=== PATIENT | male | born 1940 | race Caucasian/White ===

== ENCOUNTER → 2018-01-15 | Outpatient (CLI) | payer OTHER ==
[~2018-01-15] MED LIST: ASPI81CH PO; ATOR80 PO; Ambien5 MG PO; Amiodarone HCl200 MG PO; CARV6.25 PO; HYDR10 PO; ISODIN10 PO; LOSARTAN POTASS25 MG PO; METF500 PO; NAPR500 PO; TICA90TA PO; Zofran Odt4 MG SL
== END ==
LOC: PLD 10:21 → LAB SHORT 10:21
DX: L98.9 Disorder of the skin and subcutaneous tissue, unspecified (principal)
CPT/HCPCS: 88305; 88312

== ENCOUNTER → 2019-02-03 | Outpatient (CLI) | payer OTHER | END | disposition home or self-care (01) | LOC: PLD 08:18 → LAB SHORT 08:18 | DX: D48.5 Neoplasm of uncertain behavior of skin (principal) | CPT/HCPCS: 88305 ==

== ENCOUNTER → 2019-02-18 | Outpatient (CLI) | payer OTHER | END | disposition home or self-care (01) | LOC: PLD 08:03 → LAB SHORT 08:03 | DX: C44.310 Basal cell carcinoma of skin of unspecified parts of face (principal) | CPT/HCPCS: 88305 ==

== ENCOUNTER 2019-04-30 09:03 | Day surgery (SDC) | payer OTHER ==
[~2019-04-30] VITALS: Ht 175.3 cm; Wt 95.3 kg
[~2019-04-30 09:03] MED LIST changes: +Alavert D-12 A1 EACH PO; +CLOB.05TO TOP; +CLOP75 PO; +DOXY100 PO; +LORA.5 PO; +LOSA25 PO
--- NOTE | 2019-04-30 09:39 | NUR ---
PT ADMITTED TO [facility]. AGREES WITH PLANNED SURGERY. LUNG SOUNDS CLEAR.
--- NOTE | 2019-04-30 12:21 | NUR ---
Patient up to Ambulate independently. Gait steady. Discharge instructions reviewed with patient. Patient verbalizes understanding. Copy given to patient to take home. Patient States Post-Procedure ride home has been arranged. Discharged via wheelchair to private car for ride home.
== END 2019-04-30 22:47 | disposition home or self-care (01) ==
LOC: ORSCMMR 09:03 → ORD 10:30 → ORSCMMR 22:47
PROVIDERS: Surgery
PROC: 0D9P3ZX Drainage of Rectum, Percutaneous Approach, Diagnostic (ICD-10-PCS; principal; 2019-04-30 10:30)
DX: K61.1 Rectal abscess (principal); E11.22 Type 2 diabetes mellitus with diabetic chronic kidney disease; I12.9 Hypertensive chronic kidney disease with stage 1 through stage 4 chronic kidney disease, or unspecified chronic kidney disease; N18.9 Chronic kidney disease, unspecified; I48.91 Unspecified atrial fibrillation; Z79.01 Long term (current) use of anticoagulants; I25.10 Atherosclerotic heart disease of native coronary artery without angina pectoris; I25.2 Old myocardial infarction; Z79.899 Other long term (current) drug therapy; Z79.82 Long term (current) use of aspirin; F17.210 Nicotine dependence, cigarettes, uncomplicated
CPT/HCPCS: 82947; 93005; 93010; J1100; J2250; J2405; J2704; J3010; J7120

== ENCOUNTER → 2019-05-13 | Outpatient (CLI) | payer OTHER | END | disposition home or self-care (01) | LOC: LAB SHORT 16:29 → PLD 16:29 | DX: D48.5 Neoplasm of uncertain behavior of skin (principal) | CPT/HCPCS: 88305 ==

== ENCOUNTER → 2020-09-01 | Outpatient (CLI) | payer OTHER | END | disposition home or self-care (01) | LOC: PLD 08:00 → LAB SHORT 08:00 | DX: L73.8 Other specified follicular disorders (principal) | CPT/HCPCS: 88305 ==

== ENCOUNTER → 2024-02-17 | Outpatient (CLI) | payer OTHER ==
[~2024-02-17] MED LIST changes: +ALDACTONE25 MG PO; +ATORVASTATIN CA20 MG PO; +CARVEDILOL25 M9 PO; +LANSOPRAZOLE15 MG PO; +LEVOCETIRIZINE D5 MG PO; +METFORMIN HCL500 M2 PO; +OMEP20ER PO; +PANT40 PO
[2024-02-17 08:15] LABS: BASOPHILS ABSOLUTE AUTO 0.02 K/mm3 (0.00-0.23); BASOPHILS PERCENT AUTO 0 % (0-2); EOSINOPHILS ABSOLUTE AUTO 0.06 K/mm3 (0.00-0.68); EOSINOPHILS PERCENT AUTO 1 % (0-6); Hematocrit 36.2 % (37.0-53.0); Hemoglobin 12.3 g/dL (13.5-17.5); IMMATURE GRAN ABSOLUTE AUTO 0.02 K/mm3 (0.00-0.10); IMMATURE GRAN PERCENT AUTO 0 % (0-1); LYMPHOCYTES ABSOLUTE AUTO 1.03 K/mm3 (0.84-5.20); LYMPHOCYTES PERCENT AUTO 22 % (21-46); MONOCYTES ABSOLUTE AUTO 0.41 K/mm3 (0.16-1.47); MONOCYTES PERCENT AUTO 9 % (4-13); Mean Corpuscular HGB 31.4 pg (26.0-34.0); Mean Corpuscular Volume 92 fL (80-100); Mean Platelet Volume 10.5 fL (9.1-12.4); NEUTROPHILS ABSOLUTE AUTO 3.13 K/mm3 (1.96-9.15); NEUTROPHILS PERCENT AUTO 67 % (41-73); Platelet Count 145 K/mm3 (150-400); RDW Coefficient Variation 12.6 % (11.7-14.2); RDW Standard Deviation 41.8 fL (35.1-46.3); Red Blood Cell Count 3.92 M/mm3 (4.30-5.90); White Blood Cell Count 4.67 K/mm3 (4.00-11.30)
[2024-02-17 08:27] LABS: Albumin, Blood 3.3 g/dL (3.4-5.0); Albumin/Globulin Ratio 0.9 (0.8-1.8); Bilirubin, Total 1.4 mg/dL (0.1-1.0); Bun/Creatinine Ratio 10.4 (12.0-20.0); Calcium, Blood 8.7 mg/dL (8.5-10.1); Creatinine, Blood 1.35 mg/dL (0.60-1.20); Globulin, Blood 3.6 g/dL (2.2-4.0); Potassium, Blood 4.1 mmol/L (3.5-5.5); Total Protein, Blood 6.9 g/dL (6.4-8.2)
== END | disposition home or self-care (01) ==
LOC: LAB 08:10 → LAB SHORT 08:10
PROVIDERS: Physician Assistant
DX: R06.00 Dyspnea, unspecified (principal)
CPT/HCPCS: 80053; 83880; 84484; 85025

== ENCOUNTER 2024-04-03 16:26 | Observation (INO) | payer OTHER ==
[~2024-04-03 16:26] MED LIST changes: -ATIVAN0.5 MG PO; -ATORVASTATIN CA80 M1 PO; -FLOMAX0.4 MG PO; -FURO20 PO
[2024-04-03 16:51] VITALS: BP 120/79
[2024-04-03] MEDS ORDERED: Magnesium Hydroxide Conc 10 ML UDC PO PRN (16:55)
[2024-04-03] MEDS ORDERED: Acetaminophen 325 MG TABLET PO PRN (17:00)
[2024-04-03] MEDS ORDERED: ASPI81CH PO (17:01)
[2024-04-03] MEDS ORDERED: ATORVASTATIN CA80 M1 PO (17:02)
[2024-04-03] MEDS ORDERED: FURO20 PO (17:04)
[2024-04-03] MEDS ORDERED: ATIVAN0.5 MG PO (17:05)
[2024-04-03] MEDS ORDERED: LORazepam 1 MG Tab PO PRN (17:05)
[2024-04-03] MEDS ORDERED: OMEP20ER PO (17:06)
[2024-04-03] MEDS ORDERED: ALDACTONE25 MG PO (17:07)
[2024-04-03] MEDS ORDERED: FLOMAX0.4 MG PO (17:08)
--- NOTE | 2024-04-03 19:50 | NUR ---
SHIFT SUMMARY- PT ALERT, ORIENTED AND INDEPENDENT IN THE ROOM. HE WAS DIRECT ADMITTED THROUGH [facility]. PT IN [place] FOR COVID. CALLED DR ANDRADE AND SPOKE ABOUT LABS NEEDED FOR PRE THORACENTESIS. PT SATES HIS LAST DOSE OF PLAVIX WAS TAKEN THIS MORNING. SPOKE TO GUEST ATTENDANT URIEL, SHE WILL BE SURE THE RADIOLOGIST IS AWARE, THE PLAVIX MAY DELAY THE PROCEDURE. DR ROSADO IS AWARE. PT CURRENTLY ON ROOM AIR. ADMISSION ASSESSMENT WAS COMPLETED, UNABLE TO COMPLETE Hx AT THIS TIME PASSED ON TO VENDER. PT IN BED SLEEPING AT THE TIME OF REPORT. PT STATES HE AND HIS JUST FINISHED A SHORT [place] HE STATES THATS WHERE HE CAUGHT COVID. PT IN BED, CALL LIGHT IN REACH NO S&S OF DISTRESS NOTED AT THIS TIME.
[2024-04-03 20:00] VITALS: BP 102/72
[2024-04-03] MEDS ORDERED: Tamsulosin HCl 0.4 MG Cap PO SCH (21:00)
[2024-04-03] MEDS ORDERED: Sennosides 8.6 MG Tab PO SCH (21:00)
[2024-04-03] MEDS ORDERED: Atorvastatin 40 MG Tab PO SCH (21:00)
[2024-04-04 03:44] VITALS: BP 101/69
[2024-04-04 05:31] LABS: BASOPHILS PERCENT AUTO 0 % (0-2); EOSINOPHILS ABSOLUTE AUTO 0.02 K/mm3 (0.00-0.68); EOSINOPHILS PERCENT AUTO 1 % (0-6); Hematocrit 32.1 % (37.0-53.0); IMMATURE GRAN PERCENT AUTO 0 % (0-1); LYMPHOCYTES ABSOLUTE AUTO 1.11 K/mm3 (0.84-5.20); LYMPHOCYTES PERCENT AUTO 29 % (21-46); MONOCYTES ABSOLUTE AUTO 0.46 K/mm3 (0.16-1.47); MONOCYTES PERCENT AUTO 12 % (4-13); Mean Corpuscular HGB 31.2 pg (26.0-34.0); Mean Corpuscular HGB Conc 34.3 g/dL (31.5-36.5); Mean Corpuscular Volume 91 fL (80-100); Mean Platelet Volume 10.2 fL (9.1-12.4); NEUTROPHILS ABSOLUTE AUTO 2.24 K/mm3 (1.96-9.15); NEUTROPHILS PERCENT AUTO 59 % (41-73); Platelet Count 115 K/mm3 (150-400); RDW Coefficient Variation 13.3 % (11.7-14.2); RDW Standard Deviation 43.7 fL (35.1-46.3); Red Blood Cell Count 3.53 M/mm3 (4.30-5.90); White Blood Cell Count 3.83 K/mm3 (4.00-11.30)
[2024-04-04 05:46] LABS: International Normalized Ratio 1.04; Prothrombin Time Results 11.1 Sec (9.7-11.5)
--- NOTE | 2024-04-04 05:50 | NUR ---
SHIFT SUMMARY: NO ACUTE EVENTS. DENIED PAIN. NO EVENTS ON TELEMETRY, SR 70-90'S WITH OCC PVC'S. SCD'S PLACED, BUT AFTER ~ 30 MINUTES PT DEVELOPED LEG CRAMPS IN BILATERAL THIGHS AND ASKED TO HAVE THEM REMOVED. INDEPENDENT IN ROOM. IS NPO FOR THORACENTESIS TODAY.
[2024-04-04] MEDS ORDERED: Omeprazole 20 MG CapCR PO SCH (06:00)
[2024-04-04 06:02] LABS: Albumin, Blood 3.2 g/dL (3.4-5.0); Bilirubin, Total 1.1 mg/dL (0.1-1.0); Bun/Creatinine Ratio 16.9 (12.0-20.0); Calcium, Blood 8.7 mg/dL (8.5-10.1); Creatinine, Blood 1.42 mg/dL (0.60-1.20); Globulin, Blood 3.3 g/dL (2.2-4.0); Potassium, Blood 3.9 mmol/L (3.5-5.5); Total Protein, Blood 6.5 g/dL (6.4-8.2)
[2024-04-04 07:59] VITALS: BP 104/63
[2024-04-04] MEDS ORDERED: Lactated Ringer's 500 ML IV SCH (08:00)
[2024-04-04] MEDS ORDERED: Spironolactone 25 MG Tab PO SCH (09:00)
[2024-04-04 11:37] VITALS: BP 107/66
--- NOTE | 2024-04-04 15:46 | NUR ---
DISCHARGE NOTE- PT AND HIS SPOUSE WERE PRESENT FOR DISCHARGE TEACHING. PT HAD NO FURTHER QUESTIONS AT THE TIME OF DISCHARGE. IV AND TELE DC'D AT THE TIME OF DISCHARGE, PT ESCORTED OUT VIA WC BY THE SOFTWARE QUALITY TESTER. NO S&S OF DISTRESS AT THE TIME OF DISCHARGE.
== END 2024-04-04 15:02 | disposition home or self-care (01) ==
LOC: MEDS 16:26
PROVIDERS: ADMIT Family Medicine
DX: J90 Pleural effusion, not elsewhere classified (principal); I25.118 Atherosclerotic heart disease of native coronary artery with other forms of angina pectoris; J44.9 Chronic obstructive pulmonary disease, unspecified; I13.0 Hypertensive heart and chronic kidney disease with heart failure and stage 1 through stage 4 chronic kidney disease, or unspecified chronic kidney disease; E11.22 Type 2 diabetes mellitus with diabetic chronic kidney disease; I50.22 Chronic systolic (congestive) heart failure; N18.30 Chronic kidney disease, stage 3 unspecified; U07.1 COVID-19; N40.1 Benign prostatic hyperplasia with lower urinary tract symptoms; K76.0 Fatty (change of) liver, not elsewhere classified; K80.20 Calculus of gallbladder without cholecystitis without obstruction; Z88.8 Allergy status to other drugs, medicaments and biological substances; Z79.899 Other long term (current) drug therapy; Z87.891 Personal history of nicotine dependence; R06.02 Shortness of breath; I25.10 Atherosclerotic heart disease of native coronary artery without angina pectoris; E27.9 Disorder of adrenal gland, unspecified; K76.89 Other specified diseases of liver
CPT/HCPCS: 36415; 71046; 71260; 76705; 80053; 83880; 84484; 85025; 85379; 85610; 85730; A9270; G0378; Q9967

== ENCOUNTER → 2024-04-03 | Outpatient (CLI) | payer OTHER ==
[~2024-04-03] MED LIST changes: +ATIVAN0.5 MG PO; +ATORVASTATIN CA80 M1 PO; +FLOMAX0.4 MG PO; +FURO20 PO
[2024-04-03 08:22] LABS: BASOPHILS ABSOLUTE AUTO 0.02 K/mm3 (0.00-0.23); BASOPHILS PERCENT AUTO 0 % (0-2); EOSINOPHILS ABSOLUTE AUTO 0.01 K/mm3 (0.00-0.68); EOSINOPHILS PERCENT AUTO 0 % (0-6); Hematocrit 35.2 % (37.0-53.0); Hemoglobin 11.9 g/dL (13.5-17.5); IMMATURE GRAN ABSOLUTE AUTO 0.03 K/mm3 (0.00-0.10); IMMATURE GRAN PERCENT AUTO 1 % (0-1); LYMPHOCYTES PERCENT AUTO 18 % (21-46); MONOCYTES ABSOLUTE AUTO 0.61 K/mm3 (0.16-1.47); MONOCYTES PERCENT AUTO 14 % (4-13); Mean Corpuscular HGB 30.8 pg (26.0-34.0); Mean Corpuscular HGB Conc 33.8 g/dL (31.5-36.5); Mean Corpuscular Volume 91 fL (80-100); NEUTROPHILS ABSOLUTE AUTO 3.01 K/mm3 (1.96-9.15); NEUTROPHILS PERCENT AUTO 67 % (41-73); RDW Coefficient Variation 13.4 % (11.7-14.2); RDW Standard Deviation 44.3 fL (35.1-46.3); Red Blood Cell Count 3.86 M/mm3 (4.30-5.90); White Blood Cell Count 4.48 K/mm3 (4.00-11.30)
[2024-04-03 08:52] LABS: Mean Platelet Volume 10.3 fL (9.1-12.4); Platelet Count 138 K/mm3 (150-400)
[2024-04-03 09:04] LABS: Albumin, Blood 3.8 g/dL (3.4-5.0); Bilirubin, Total 1.2 mg/dL (0.1-1.0); Bun/Creatinine Ratio 16.2 (12.0-20.0); Creatinine, Blood 1.54 mg/dL (0.60-1.20); Globulin, Blood 3.8 g/dL (2.2-4.0); Potassium, Blood 4.1 mmol/L (3.5-5.5); Total Protein, Blood 7.6 g/dL (6.4-8.2)
== END | disposition home or self-care (01) ==
LOC: LAB 08:05 → LAB SHORT 08:05
PROVIDERS: Emergency Medicine
DX: I50.22 Chronic systolic (congestive) heart failure (principal); R06.02 Shortness of breath
CPT/HCPCS: 80053; 83880; 84484; 85025; 85379

== ENCOUNTER 2024-04-07 13:51 | Emergency (ER) | payer OTHER ==
[~2024-04-07] VITALS: Ht 175.3 cm; Wt 83.9 kg
[~2024-04-07 13:51] MED LIST changes: +ATIVAN0.5 MG PO; +ATORVASTATIN CA80 M1 PO; +FLOMAX0.4 MG PO; +FURO20 PO
[2024-04-07 14:14] LABS: BASOPHILS ABSOLUTE AUTO 0.01 K/mm3 (0.00-0.23); BASOPHILS PERCENT AUTO 0 % (0-2); EOSINOPHILS ABSOLUTE AUTO 0.19 K/mm3 (0.00-0.68); EOSINOPHILS PERCENT AUTO 3 % (0-6); Hematocrit 36.8 % (37.0-53.0); Hemoglobin 12.6 g/dL (13.5-17.5); IMMATURE GRAN ABSOLUTE AUTO 0.02 K/mm3 (0.00-0.10); IMMATURE GRAN PERCENT AUTO 0 % (0-1); LYMPHOCYTES ABSOLUTE AUTO 0.77 K/mm3 (0.84-5.20); LYMPHOCYTES PERCENT AUTO 13 % (21-46); MONOCYTES ABSOLUTE AUTO 0.45 K/mm3 (0.16-1.47); MONOCYTES PERCENT AUTO 8 % (4-13); Mean Corpuscular HGB 30.9 pg (26.0-34.0); Mean Corpuscular HGB Conc 34.2 g/dL (31.5-36.5); Mean Corpuscular Volume 90 fL (80-100); Mean Platelet Volume 10.1 fL (9.1-12.4); NEUTROPHILS ABSOLUTE AUTO 4.39 K/mm3 (1.96-9.15); NEUTROPHILS PERCENT AUTO 75 % (41-73); Platelet Count 156 K/mm3 (150-400); RDW Coefficient Variation 13.1 % (11.7-14.2); RDW Standard Deviation 43.1 fL (35.1-46.3); Red Blood Cell Count 4.08 M/mm3 (4.30-5.90); White Blood Cell Count 5.83 K/mm3 (4.00-11.30)
[2024-04-07 17:15] VITALS: BP 102/70
== END 2024-04-07 17:23 | disposition home or self-care (01) ==
LOC: ER 13:51
PROVIDERS: Emergency Medicine
DX: J81.1 Chronic pulmonary edema (principal); J90 Pleural effusion, not elsewhere classified; I25.2 Old myocardial infarction; I10 Essential (primary) hypertension; E78.5 Hyperlipidemia, unspecified; Z95.5 Presence of coronary angioplasty implant and graft; Z95.0 Presence of cardiac pacemaker; Z79.899 Other long term (current) drug therapy; Z88.8 Allergy status to other drugs, medicaments and biological substances
CPT/HCPCS: 71046; 85025; 99285-25

== ENCOUNTER 2024-04-13 10:11 | Day surgery (SDC) | payer OTHER | END 2024-04-13 23:11 | disposition home or self-care (01) | LOC: US 10:11 | DX: J90 Pleural effusion, not elsewhere classified (principal) | CPT/HCPCS: 32555; 71045 ==

== ENCOUNTER 2024-05-10 09:56 | Inpatient (IN) | payer OTHER ==
[2024-05-10] VITALS (13 sets, daily range): BP systolic 66–92; BP diastolic 42–64
[~2024-05-10] VITALS: Ht 175.3 cm; Wt 81.5 kg
[2024-05-10 10:30] LABS: BASOPHILS ABSOLUTE AUTO 0.02 K/mm3 (0.00-0.23); BASOPHILS PERCENT AUTO 0 % (0-2); EOSINOPHILS ABSOLUTE AUTO 0.23 K/mm3 (0.00-0.68); EOSINOPHILS PERCENT AUTO 4 % (0-6); Hematocrit 31.6 % (37.0-53.0); Hemoglobin 10.6 g/dL (13.5-17.5); IMMATURE GRAN ABSOLUTE AUTO 0.01 K/mm3 (0.00-0.10); IMMATURE GRAN PERCENT AUTO 0 % (0-1); LYMPHOCYTES ABSOLUTE AUTO 0.67 K/mm3 (0.84-5.20); LYMPHOCYTES PERCENT AUTO 12 % (21-46); MONOCYTES ABSOLUTE AUTO 0.39 K/mm3 (0.16-1.47); MONOCYTES PERCENT AUTO 7 % (4-13); Mean Corpuscular HGB 30.5 pg (26.0-34.0); Mean Corpuscular HGB Conc 33.5 g/dL (31.5-36.5); Mean Corpuscular Volume 91 fL (80-100); Mean Platelet Volume 9.4 fL (9.1-12.4); NEUTROPHILS ABSOLUTE AUTO 4.35 K/mm3 (1.96-9.15); NEUTROPHILS PERCENT AUTO 77 % (41-73); Platelet Count 216 K/mm3 (150-400); RDW Coefficient Variation 14.5 % (11.7-14.2); RDW Standard Deviation 48.4 fL (35.1-46.3); Red Blood Cell Count 3.47 M/mm3 (4.30-5.90); White Blood Cell Count 5.67 K/mm3 (4.00-11.30)
[2024-05-10 10:34] LABS: Albumin, Blood 2.4 g/dL (3.4-5.0); Albumin/Globulin Ratio 0.6 (0.8-1.8); Bilirubin, Total 0.6 mg/dL (0.1-1.0); Bun/Creatinine Ratio 20.3 (12.0-20.0); Calcium, Blood 7.9 mg/dL (8.5-10.1); Creatinine, Blood 2.61 mg/dL (0.60-1.20); Magnesium, Blood 2.1 mg/dL (1.6-2.4); Potassium, Blood 4.6 mmol/L (3.5-5.5); Total Protein, Blood 6.4 g/dL (6.4-8.2)
[2024-05-10] MEDS ORDERED: NS 1,000 ML IV SCH (10:55)
[2024-05-10 12:53] LABS: Source, Urine Clean Catch
[2024-05-10 13:00] LABS: Appearance, Urine Hazy (Clear); Blood, Urine Neg (Neg); Color, Urine Yellow (P-Yellow); Glucose Qualitative, Urine Neg (Neg); Ketones, Urine Neg (Neg); Leukocyte Esterase, Urine Neg (Neg); Nitrite, Urine Neg (Neg); Protein, Urine 2+ (Neg); Specific Gravity, Urine 1.025 (1.003-1.022); Urobilinogen, Urine 2+ (Normal)
[2024-05-10] MEDS ORDERED: Midodrine 5 MG Tab PO ONE ×2 (13:00→15:00)
[2024-05-10 13:07] LABS: Bilirubin, Urine 1+ (Neg); Hyaline Casts 50-100 /lpf (0-2)
[2024-05-10 13:08] LABS: Red Blood Cells, Urine 0-2 /hpf (0-2)
[2024-05-10 13:09] LABS: Amorphous Mod (0-Heavy); Bacteria Few /hpf; Squamous Epithelial Cells Rare /hpf (Few); Transitional Epithelial Cells Rare /hpf (0-Rare)
[2024-05-10] MEDS ORDERED: ASPI81CH PO (17:34)
[2024-05-10] MEDS ORDERED: TRAZ50 PO (17:53)
[2024-05-10] MEDS ORDERED: METO25ER PO (17:57)
[2024-05-10] MEDS ORDERED: Digoxin 0.25 MG/ML 2ML Amp IV ONE (18:00)
--- NOTE | 2024-05-10 18:36 | NUR ---
PT TRANSFERED TO PCU 19 FROM THE ER AT ABOUT 1705 THE PT TRANSFERED FROM [facility] TO THE BED W/ 1P ASSIST. AT BASELINE HE USES A CANE AND WALKER. HE IS ON RA W/ SP02 >90% THE PT HAS SOB WITH ANY ACTIVITY, HE DENIES SOB AT REST. THE PT STATES THIS HAS BEEN GOING ON FOR SIX TO EIGHT MONTHS. ON TELEMETRY THE PT IS AFIB 100'S-150'S. HIS BP IS LOW. IF THE PT'S MAP IS <[address] DR[address] HAWTHORNE WOULD LIKE THE PT TRANSFERING TO ICU. DR. HAWTHORNE ORDERED 0.25MG IV DIGOXIN Q6 X3 DOSES. D/T GREGORIO DR. HAWTHORNE WANTED NEPHROLOGY CONSUTLED. DR. LIVE WAS NOTIFIED. THE PT WAS AGREEABLE TO A STRESS TEST AND HE WILL BE NPO AT 0000. THE PT WAS C/O BUTT PAIN WHILE SITTING IN THE BED SO AN EGG CRATE MATTRESS WAS PALCED. CALL LIGHT IN REACH, BED IN LOW. SEE NOTES FOR ANY UPDATES.
[2024-05-10] MEDS ORDERED: Albumin Human 50 ML IV SCH (19:30)
[2024-05-10] MEDS ORDERED: Midodrine 5 MG Tab PO SCH (19:30)
[2024-05-10] MEDS ORDERED: Bumetanide 0.25 MG/ML 4ML ViaL IV SCH (19:30)
[2024-05-10 19:31] LABS: Anti-Xa UFH, PHA Monitoring <0.10 IU/mL; International Normalized Ratio 1.07; Prothrombin Time Results 11.4 Sec (9.7-11.5)
[2024-05-10] MEDS ORDERED: Heparin Sodium,Porcine/0.5 NS 500 ML IV SCH (19:40)
[2024-05-10] MEDS ORDERED: Heparin Sodium 5000 Units/ML 1ML MDV IV ONE (19:45)
[2024-05-10] MEDS ORDERED: Benzonatate 100 MG Cap PO PRN (20:35)
[2024-05-10] MEDS ORDERED: TraZODone HCl 50 MG Tab PO SCH (21:00)
--- NOTE | 2024-05-10 22:08 | NUR ---
PT IS ALERT AND ORIENTED X 4, COOPERATIVE WITH CARE, AND ABLE TO MAKE NEEDS KNONW. PT REPORTS INCREASED WEAKNESS, SOB W/EXERTION, AND BLE EDEMA LATELY. PT TOLERATES STAND AND PIVOT TO BEDSIDE COMMODE, HOWEVER HE EXPERIENCES SOB AND INCREASED HR UP TO 150'S W/EXERTION. HE IS ON RA AND MAINTAINING 02 SATURATION ABOVE 92%. HR IS IS AFIB 100'S-150'S. HE DENIES CHEST PAIN/PRESSURE. BP HAS BEEN SOFT. PER DAY SHIFT NURSE, DR. GONZALEZ INSTRUCTED PT TO TRANSFER TO ICU IF BP CONTINUES TO BE SOFT W/MAP <60. PT'S BP HAS CONTINUED TO BE SOFT AND MAJORITY OF MAP'S HAVE BEEN <60. PLAN IS FOR PT TO TRANSFER TO ICU. DR. LIVE WAS AT BEDSIDE CONSULTING WITH PT AT BEGINNING OF SHIFT. ORDERS PLACED, AND PT MEDICATED PER EMAR. PT CONTINENT OF BLADDER AND BOWELS. PT SAID HE IS UNABLE TO USE URINAL DUE TO HIS ANATOMY. PT ABLE TO UTILIZE BEDSIDE COMMODE WITH HAT IN IT. STRICT I&O'S. IV TO L AC IS PATENT AND RUNNING HEPARIN DRIP PER EMAR. BLE EDEMA NOTED. PLAN IS FOR PT TO HAVE STRESS TEST TMR & POSSIBLE ANGIO, PER CARLOS. NPO AT MIDNIGHT. PT RESTING IN BED WITH UNLABORED AND EVEN BREATHING. CALL LIGHT WITHIN REACH.
[2024-05-11] VITALS (26 sets, daily range): BP systolic 70–101; BP diastolic 50–71
--- NOTE | 2024-05-11 00:26 | NUR ---
PT'S BP HAS IMPROVED AND MAPS HAVE BEEN ABOVE 60. THIS RN SPOKE WITH DR. GONZALEZ AND HOSPITALIST AND PT TO STAY IN PCU. PER DR. GONZALEZ IF BP AND MAP STAY AROUND WHERE THEY HAVE BEEN SINCE 05/10 AND TIME NOW IS 05/11, THEN HOLD BUMEX IN THE AM. SEE VITALS.
[2024-05-11 03:38] LABS: BASOPHILS ABSOLUTE AUTO 0.02 K/mm3 (0.00-0.23); BASOPHILS PERCENT AUTO 0 % (0-2); EOSINOPHILS ABSOLUTE AUTO 0.49 K/mm3 (0.00-0.68); EOSINOPHILS PERCENT AUTO 8 % (0-6); Hematocrit 30.3 % (37.0-53.0); Hemoglobin 10.2 g/dL (13.5-17.5); IMMATURE GRAN ABSOLUTE AUTO 0.03 K/mm3 (0.00-0.10); IMMATURE GRAN PERCENT AUTO 1 % (0-1); LYMPHOCYTES ABSOLUTE AUTO 0.73 K/mm3 (0.84-5.20); LYMPHOCYTES PERCENT AUTO 12 % (21-46); MONOCYTES ABSOLUTE AUTO 0.51 K/mm3 (0.16-1.47); MONOCYTES PERCENT AUTO 8 % (4-13); Mean Corpuscular HGB 30.5 pg (26.0-34.0); Mean Corpuscular HGB Conc 33.7 g/dL (31.5-36.5); Mean Corpuscular Volume 91 fL (80-100); Mean Platelet Volume 9.4 fL (9.1-12.4); NEUTROPHILS ABSOLUTE AUTO 4.53 K/mm3 (1.96-9.15); NEUTROPHILS PERCENT AUTO 72 % (41-73); Platelet Count 210 K/mm3 (150-400); RDW Coefficient Variation 14.4 % (11.7-14.2); RDW Standard Deviation 48.1 fL (35.1-46.3); Red Blood Cell Count 3.34 M/mm3 (4.30-5.90); White Blood Cell Count 6.31 K/mm3 (4.00-11.30)
[2024-05-11 04:07] LABS: Albumin, Blood 2.4 g/dL (3.4-5.0); Albumin/Globulin Ratio 0.7 (0.8-1.8); Bilirubin, Total 0.7 mg/dL (0.1-1.0); Bun/Creatinine Ratio 22.9 (12.0-20.0); Calcium, Blood 7.6 mg/dL (8.5-10.1); Creatinine, Blood 2.58 mg/dL (0.60-1.20); Globulin, Blood 3.6 g/dL (2.2-4.0); Magnesium, Blood 1.9 mg/dL (1.6-2.4); Phosphorus, Blood 3.8 mg/dL (2.5-4.9); Potassium, Blood 4.6 mmol/L (3.5-5.5); Thyroid Stimulating Hormone 5.14 uIU/mL (0.360-4.800); Uric Acid, Blood 10.5 mg/dL (3.5-7.2)
[2024-05-11] MEDS ORDERED: Dose Adjust by Pharmacy XX STA ×3 (04:34→19:02)
[2024-05-11] MEDS ORDERED: Digoxin 0.25 MG/ML 2ML Amp IV ONE ×2 (06:00)
--- NOTE | 2024-05-11 06:01 | NUR ---
MAP'S HAVE ALL BEEN ABOVE 60 SINCE PREVIOUS NOTE. SEE VITALS. PT STILL ON RA MAINTAINING 02 SATURATION ABOVE 92%. SOB W/EXERTION. HR AFIB 100'S-150'S, HIGHER W/EXERTION. PT DENIES CHEST PAIN/PRESSURE. PT TOLERATES STANDING AND PIVOTING TO BEDSIDE COMMODE WITH SBA WELL. PT HAS BEEN NPO SINCE MIDNIGHT FOR STRESS TEST SCHEDULED FOR TODAY 05/11/24, AND POSSIBLE ANGIO. PT RESTING IN BED AND CALL LIGHT WITHIN REACH.
[2024-05-11] MEDS ORDERED: Furosemide 10 MG / ML 2ML Vial IV SCH (09:00)
[2024-05-11] MEDS ORDERED: Aspirin 81 MG Chew PO SCH (09:00)
[2024-05-11] MEDS ORDERED: Tamsulosin HCl 0.4 MG Cap PO SCH (09:00)
[2024-05-11] MEDS ORDERED: Sodium Bicarbonate 650 MG Tab PO SCH (09:00)
[2024-05-11] MEDS ORDERED: Pantoprazole Sodium 20 MG Tab PO SCH (09:00)
[2024-05-11] MEDS ORDERED: Clopidogrel Bisulfate 75 MG Tab PO SCH (09:00)
[2024-05-11] MEDS ORDERED: Atorvastatin 40 MG Tab PO SCH (09:00)
--- NOTE | 2024-05-11 11:15 | NUR ---
ASSUMED CARE: REPORT RECEIVED FROM LETY Galindo RN. ASSUMED CARE OF THIS PT AT APPROX 1115. AT TIME OF ASSESSMENT, THE PT IS SITTING UP IN BED, STS COMFORT. A&O TO ALL, TRANSFERS WITH SBA TO BSC. ON RA WITH O2 SATS > 95%. MONITOR SHOWS AFIB WITH OCCASIONAL V-PACING, HR 70-80s. HYPOTENSIVE WITH SBP 80-90s, MAP > 65 ON AVG. PT HAS NO GI COMPLAINTS, IS TOLERATING PO INTAKE WELL. VOIDS URINE WITHOUT DIFFICULTY. SKIN CONDITION OVERALL FRAGILE, INTACT. PT REPOSITIONS SELF PRN FOR COMFORT. WILL CONTINUE TO MONITOR & UPDATE NEEDED.
--- NOTE | 2024-05-11 18:43 | NUR ---
SHIFT SUMMARY: NO ACUTE CHANGES SINCE PRIOR UPDATES. PT REMAINS A&O TO ALL, IS ABLE TO MAKE NEEDS KNOWN. SBA TO BSC FOR CORD/ LINE MANAGEMENT. ON RA WITH O2 SATS > 95%. MONITOR SHOWS AFIB WITH OCCASIONAL V-PACING, HR 70-100s. HYPOTENSIVE WITH SBP 80-90s, MAP MAINTAINS > 65 ON AVG. NO GI COMPLAINTS, TOLERATING PO INTAKE WELL. VOIDS URINE WITHOUT DIFFICULTY, DIURESIS PER EMAR. SKIN CONDITION OVERALL FRAGILE, INTACT. PT REPOSITIONS SELF PRN FOR COMFORT OR REQUESTS STAFF ASSISTANCE. WILL CONTINUE TO MONITOR & REPORT OFF TO ONCOMING RN.
--- NOTE | 2024-05-11 21:26 | NUR ---
PT IS ALERT AND ORIENTED X 4, COOPERATIVE WITH CARE AND ABLE TO MAKE NEEDS KNOWN. HE IS ON RA AND MAINTAINING 02 SATURATION ABOVE 92%, SOME SOB W/EXERTION. HR AFIB, BBB, V-PACED 80'S-100'S. PT DENIES CHEST PAIN/PRESSURE. PT ON HEPARIN DRIP PER EMAR. BP'S ON SOFTER SIDE BUT MAPS HAVE BEEN ABOVE 60, MD AWARE AND CARDIOLOGY & NEPHROLOGY ON BOARD. PT BEING DIURESED. PT TOLERATES GETTING UP TO BEDSIDE COMMODE WELL WITH SBA. PT TO BE NPO AT MIDNIGHT FOR 2ND PORTION OF STRESS TEST TOMORROW 05/12/24. PT RESTING IN BED AND CALL LIGHT WITHIN REACH.
[2024-05-12] VITALS (10 sets, daily range): BP systolic 80–109; BP diastolic 42–69
[2024-05-12] MEDS ORDERED: Clarify Drug Order XX ONE ×2 (00:40→05:10)
[2024-05-12 04:36] LABS: BASOPHILS ABSOLUTE AUTO 0.02 K/mm3 (0.00-0.23); BASOPHILS PERCENT AUTO 0 % (0-2); EOSINOPHILS ABSOLUTE AUTO 0.41 K/mm3 (0.00-0.68); EOSINOPHILS PERCENT AUTO 6 % (0-6); Hematocrit 30.7 % (37.0-53.0); Hemoglobin 10.4 g/dL (13.5-17.5); IMMATURE GRAN ABSOLUTE AUTO 0.03 K/mm3 (0.00-0.10); IMMATURE GRAN PERCENT AUTO 0 % (0-1); LYMPHOCYTES PERCENT AUTO 11 % (21-46); MONOCYTES ABSOLUTE AUTO 0.59 K/mm3 (0.16-1.47); MONOCYTES PERCENT AUTO 8 % (4-13); Mean Corpuscular HGB 30.1 pg (26.0-34.0); Mean Corpuscular HGB Conc 33.9 g/dL (31.5-36.5); Mean Corpuscular Volume 89 fL (80-100); Mean Platelet Volume 9.6 fL (9.1-12.4); NEUTROPHILS PERCENT AUTO 74 % (41-73); Platelet Count 230 K/mm3 (150-400); RDW Coefficient Variation 14.5 % (11.7-14.2); RDW Standard Deviation 46.7 fL (35.1-46.3); Red Blood Cell Count 3.46 M/mm3 (4.30-5.90); White Blood Cell Count 7.15 K/mm3 (4.00-11.30)
[2024-05-12 05:00] LABS: Albumin/Globulin Ratio 0.8 (0.8-1.8); Bilirubin, Total 0.9 mg/dL (0.1-1.0); Calcium, Blood 8.6 mg/dL (8.5-10.1); Creatinine, Blood 2.23 mg/dL (0.60-1.20); Globulin, Blood 3.8 g/dL (2.2-4.0); Magnesium, Blood 1.8 mg/dL (1.6-2.4); Phosphorus, Blood 3.3 mg/dL (2.5-4.9); Potassium, Blood 4.4 mmol/L (3.5-5.5); Total Protein, Blood 6.8 g/dL (6.4-8.2)
--- NOTE | 2024-05-12 05:47 | NUR ---
NO ACUTE CHANGES SINCE PREVIOUS NOTE. PT HAS NOT SLEPT VERY MUCH THIS SHIFT, UP CONTINUOUSLY TO USE BEDSIDE COMMODE. HE CONTINUES TO DENY CHEST PAIN/PRESSURE. BP REMAINS SOFT WITH MAPS ABOVE 60. HE REMAINS ON RA MAINTAINING 02 SATURATION ABOVE 92%. PT HAD LESS SOB WITH EXERTION THAN HE DID LAST NIGHT. PT HAS BEEN NPO SINCE MIDNIGHT FOR 2ND ROUND OF STRESS TEST TODAY. PT RESTING IN BED WITH UNLABORED AND EVEN BREATHING. CALL LIGHT WITHIN REACH.
--- NOTE | 2024-05-12 07:50 | NUR ---
AM NOTE PT ALERT, ORIENTED X4; CALM AND COOPERATIVE WITH CARE. PT RESTING IN BED, UP WITH SBA TO BSC. PT DENIES PAIN, CHEST PAIN/PRESSURE, NAUSEA, AND NUMB/TINGLING. PT REPORTING INTERMITTENT DIZZINESS, WILL CONTINUE TO MONITOR. PT REPORTS SOB WITH AMBULATION, SPO2 >90% ON RA, BREATHING EVEN AND UNLABORED, LS DIM T/O; PRODUCTIVE COUGH NOTED. TELE AFIB/PACED/BBB, BP SOFT BUT STABLE. ABD SOFT, NONTENDER WITH +BT T/O. EDEMA NOTED BLE. OTHER VSS.
[2024-05-12] MEDS ORDERED: Bumetanide 1 MG Tab PO SCH (09:00)
[2024-05-12] MEDS ORDERED: Regadenoson 0.4 MG/5 ML SYRINGE ONE (10:44)
[2024-05-12] MEDS ORDERED: Aminophylline 250MG / 10ML 10 ML Vial ONE (10:44)
--- NOTE | 2024-05-12 17:33 | NUR ---
SHIFT SUMMARY UNABLE TO COMPLETED 2ND PORTION OF STRESS TEST DUE TO HYPOTENSION; PT ASSYMPTOMATIC. BP TRENDING UP T/O SHIFT. OTHER VSS. NO OTHER ACUTE CHANGES NOTED. WILL CONTINUE TO MONITOR.
[2024-05-13] VITALS (8 sets, daily range): BP systolic 91–121; BP diastolic 58–104
[2024-05-13 04:18] LABS: BASOPHILS ABSOLUTE AUTO 0.02 K/mm3 (0.00-0.23); BASOPHILS PERCENT AUTO 0 % (0-2); EOSINOPHILS ABSOLUTE AUTO 0.13 K/mm3 (0.00-0.68); EOSINOPHILS PERCENT AUTO 2 % (0-6); Hematocrit 31.9 % (37.0-53.0); Hemoglobin 10.3 g/dL (13.5-17.5); IMMATURE GRAN ABSOLUTE AUTO 0.04 K/mm3 (0.00-0.10); IMMATURE GRAN PERCENT AUTO 1 % (0-1); LYMPHOCYTES ABSOLUTE AUTO 0.59 K/mm3 (0.84-5.20); LYMPHOCYTES PERCENT AUTO 10 % (21-46); MONOCYTES PERCENT AUTO 8 % (4-13); Mean Corpuscular HGB 29.3 pg (26.0-34.0); Mean Corpuscular HGB Conc 32.3 g/dL (31.5-36.5); Mean Corpuscular Volume 91 fL (80-100); Mean Platelet Volume 9.5 fL (9.1-12.4); NEUTROPHILS ABSOLUTE AUTO 4.77 K/mm3 (1.96-9.15); NEUTROPHILS PERCENT AUTO 79 % (41-73); Platelet Count 241 K/mm3 (150-400); RDW Coefficient Variation 14.5 % (11.7-14.2); RDW Standard Deviation 47.8 fL (35.1-46.3); Red Blood Cell Count 3.52 M/mm3 (4.30-5.90); White Blood Cell Count 6.05 K/mm3 (4.00-11.30)
[2024-05-13 04:36] LABS: Albumin/Globulin Ratio 0.8 (0.8-1.8); Bilirubin, Total 0.9 mg/dL (0.1-1.0); Bun/Creatinine Ratio 24.6 (12.0-20.0); Calcium, Blood 8.7 mg/dL (8.5-10.1); Creatinine, Blood 2.03 mg/dL (0.60-1.20); Globulin, Blood 3.9 g/dL (2.2-4.0); Magnesium, Blood 1.6 mg/dL (1.6-2.4); Phosphorus, Blood 3.6 mg/dL (2.5-4.9); Potassium, Blood 4.3 mmol/L (3.5-5.5); Total Protein, Blood 6.9 g/dL (6.4-8.2)
--- NOTE | 2024-05-13 06:33 | NUR ---
SHIFT SUMMARY REPEAT EKG D/T TELE ALARMING FOR ST CHANGES. CRACKLES IN BASES OF LUNGS. PT APPEARS TO HAVE SLEEP APNEA AND DESATS TO LOW 80'S BUT QUICKLY REBOUNDS. PT SPENT ABOUT HALF OF THE NIGHT DANGLING AT BEDSIDE D/T SOB WHEN LAYING IN BED (EVEN IN SITTING POSITION). PT ANXIOUS THROUGHOUT NIGHT AND STATED MELATONIN DIDNT WORK IN THE PAST. MALE EXTERNAL CATHETER IN PLACE
[2024-05-13] MEDS ORDERED: Digoxin 0.125 MG Tab PO SCH (09:00)
[2024-05-13] MEDS ORDERED: Bumetanide 1 MG Tab PO SCH (09:00)
[2024-05-13] MEDS ORDERED: Bumetanide 1 MG Tab PO ONE (15:00)
[2024-05-13] MEDS ORDERED: Carvedilol 6.25 MG Tab PO SCH (18:00)
--- NOTE | 2024-05-13 18:33 | NUR ---
Shift Summary Pt alert, oriented x4; anxious at times. Pt up in room with sba. Pt denies pain, nausea, dizziness and numb/tingling. Pt reports lower rib/lung discomfort with inhalation and at one times reported difficulty breathing, SPo2 at this time was 95-96% on resp rate 20-24; MD notified, no new orders, provided with fan and encouraged patient to take slow deep breaths, recovered quickly; ls clear with mild fine crackles to bases t/o shift, pt remained on ra t/o. Tele afib with bbb, occasional paced beat; bp continues to be soft, map >65. Abd soft, nontender, +bt. Other vss. No other acute changes noted. Will continue to monitor.
--- NOTE | 2024-05-14 00:05 | NUR ---
SHIFT SUMMARY: ANXIOUS- FEELINGS OF SOB. POOR SLEEP. NEURO: WNL CARDIAC: COREG STARTED ON . RATE CONTROLLED BUT SYSTOLICS IN THE 90'S, PT ASYMPTOMATIC. BLE EDEMA- DECREASING PER PT REPORT. PT UNABLE TO SLEEP LYING DOWN. ACROCYANOSIS. LUNGS: CRACKLES IN BASES, PLACED ON 2L NC FOR COMFORT. QUICKLY REBOUNDS AFTER DESATURATIONS WITH POSITION CHANGES. NO BIPAP ORDERS. PULLING 750 ML FROM IS. GI/: MALE EXTERNAL CATHETER IN PLACE.
--- NOTE | 2024-05-14 02:08 | NUR ---
PT REMOVING TELE AND PULSE OX. STATES THEY ARE READY TO GO HOME. PT IS A/OX4, EDUCATED ON RISK, INCLUDING RISK OF DT THE POSSIBLE DELAY OF NOTIFICATION DURING CARDIAC RHYTHM CHANGES, VERBALIZED UNDERSTANDING. PT CONTINUES TO DECLINE THE USE OF MONITORING SYSTEMS AND REITERATES THEY ARE READY TO GO HOME BUT WILLING TO WAIT UNTIL MORNING ROUNDS. PT APPEARS TO BE HAPPY DURING EXCHANGE WITH RN.
[2024-05-14 03:48] LABS: BASOPHILS ABSOLUTE AUTO 0.03 K/mm3 (0.00-0.23); BASOPHILS PERCENT AUTO 0 % (0-2); EOSINOPHILS ABSOLUTE AUTO 0.12 K/mm3 (0.00-0.68); EOSINOPHILS PERCENT AUTO 2 % (0-6); Hematocrit 33.6 % (37.0-53.0); Hemoglobin 11.1 g/dL (13.5-17.5); IMMATURE GRAN ABSOLUTE AUTO 0.06 K/mm3 (0.00-0.10); IMMATURE GRAN PERCENT AUTO 1 % (0-1); LYMPHOCYTES ABSOLUTE AUTO 0.86 K/mm3 (0.84-5.20); LYMPHOCYTES PERCENT AUTO 12 % (21-46); MONOCYTES ABSOLUTE AUTO 0.61 K/mm3 (0.16-1.47); MONOCYTES PERCENT AUTO 9 % (4-13); Mean Corpuscular HGB 29.8 pg (26.0-34.0); Mean Corpuscular Volume 90 fL (80-100); Mean Platelet Volume 9.6 fL (9.1-12.4); NEUTROPHILS PERCENT AUTO 77 % (41-73); Platelet Count 267 K/mm3 (150-400); RDW Coefficient Variation 14.6 % (11.7-14.2); RDW Standard Deviation 48.2 fL (35.1-46.3); Red Blood Cell Count 3.72 M/mm3 (4.30-5.90); White Blood Cell Count 7.18 K/mm3 (4.00-11.30)
[2024-05-14 04:25] LABS: Albumin, Blood 3.1 g/dL (3.4-5.0); Anion Gap 14 mmol/L (3-11); Blood Urea Nitrogen 54 mg/dL (8-24); Bun/Creatinine Ratio 26.3 (12.0-20.0); CO2, Blood 22 mmol/L (21-32); Calcium, Blood 8.9 mg/dL (8.5-10.1); Chloride, Blood 105 mmol/L (98-108); Creatinine, Blood 2.05 mg/dL (0.60-1.20); Digoxin (Lanoxin) 1.25 ug/mL (0.80-2.00); Glomerular Filtration Rate 31 (60-); Glucose, Blood 165 mg/dL (70-99); Magnesium, Blood 1.6 mg/dL (1.6-2.4); Phosphorus, Blood 4.5 mg/dL (2.5-4.9); Potassium, Blood 4.6 mmol/L (3.5-5.5); Sodium, Blood 136 mmol/L (136-145)
[2024-05-14 07:17] VITALS: BP 96/64
[2024-05-14] MEDS ORDERED: Carvedilol 6.25 MG Tab PO SCH (08:00)
--- NOTE | 2024-05-14 09:10 | NUR ---
am note this rn assumed care at 0700. vital signs stable. patient does not have tele on. patient took it off during shift nurse manager and is dressed ready to go home. md ram and md guidry in to see patient this morning and discussed plan of care. patient discussed wanting hospice but did not want to wait here to get it figured out and will set it up outpatient per the conversation with md guidry. discharge order is in. awaiting for ride. patient neuro is intact. alert and oriented x4. denies chest pain/pressure, pain or shortness of breath. see shift assessment for further detials.
[2024-05-14] MEDS ORDERED: BUME2 PO (09:24)
[2024-05-14] MEDS ORDERED: MIDO5 PO (09:24)
[2024-05-14] MEDS ORDERED: SODBIC650 PO (09:25)
[2024-05-14] MEDS ORDERED: Carvedilol12.5 MG PO (09:25)
--- NOTE | 2024-05-14 10:00 | NUR ---
discharge this rn went over discharge instructions with patient and patient family. this rn went over new medications and medications to stop. medications faxed to hometown. this rn went over education on incentive spirometer use, patient verbalized understanding and did demonstration for this rn. patient left with all belongings and in no distress.
== END 2024-05-14 09:55 | disposition home or self-care (01) | DRG 682 ==
LOC: ER 09:56 → ERHOLD 09:57 → ER 09:57 → PCU 09:57 → ERHOLD 15:05 → PCU 17:16 → ERHOLD 17:16 → PCU 05-11 15:05
PROVIDERS: Emergency Medicine; Internal Medicine Nephrology; Student in an Organized Health Care Education/Training Program; ADMIT Internal Medicine
DX: N17.0 Acute kidney failure with tubular necrosis (principal); I50.23 Acute on chronic systolic (congestive) heart failure; I13.0 Hypertensive heart and chronic kidney disease with heart failure and stage 1 through stage 4 chronic kidney disease, or unspecified chronic kidney disease; E87.1 Hypo-osmolality and hyponatremia; N25.81 Secondary hyperparathyroidism of renal origin; I48.91 Unspecified atrial fibrillation; I25.5 Ischemic cardiomyopathy; D63.1 Anemia in chronic kidney disease; N40.0 Benign prostatic hyperplasia without lower urinary tract symptoms; Z66 Do not resuscitate; Z95.0 Presence of cardiac pacemaker; N18.30 Chronic kidney disease, stage 3 unspecified; J44.9 Chronic obstructive pulmonary disease, unspecified; I95.2 Hypotension due to drugs; I25.10 Atherosclerotic heart disease of native coronary artery without angina pectoris; K21.9 Gastro-esophageal reflux disease without esophagitis; F41.9 Anxiety disorder, unspecified; E78.5 Hyperlipidemia, unspecified; E11.51 Type 2 diabetes mellitus with diabetic peripheral angiopathy without gangrene; I27.20 Pulmonary hypertension, unspecified; K76.0 Fatty (change of) liver, not elsewhere classified; Z88.8 Allergy status to other drugs, medicaments and biological substances; Z79.82 Long term (current) use of aspirin; Z79.899 Other long term (current) drug therapy; Z95.5 Presence of coronary angioplasty implant and graft; Z98.890 Other specified postprocedural states; Z79.02 Long term (current) use of antithrombotics/antiplatelets; I08.3 Combined rheumatic disorders of mitral, aortic and tricuspid valves; I25.2 Old myocardial infarction
CPT/HCPCS: 36415; 51798; 71045; 76770; 78451; 80053; 80069; 80162; 81001; 82533; 82550; 83605; 83735; 83880; 84100; 84443; 84550; 85025; 85520; 85610; 85730; 93005; 93010; 94762; 96360; 96361; 96365; 96375; 96376; 99285-25; A9270; A9500; C8929; C9113; G0378; J0280; J1160; J1644; J2785; J7030; P9047; Q9957

== ENCOUNTER → 2024-05-25 | Outpatient (CLI) | payer OTHER ==
[~2024-05-25] MED LIST changes: +BUME2 PO; +Carvedilol12.5 MG PO; +METO25ER PO; +MIDO5 PO; +SODBIC650 PO; +TRAZ50 PO
[2024-05-25 15:46] LABS: Protein, Urine Quantitative 28.9 mg/dL (0.0-11.9)
[2024-05-25 15:47] LABS: Creatinine Urine 88.7 mg/dL (27.00-270.00)
[2024-06-01 17:57] LABS: HOURS COLLECTED 24 hr; TOTAL VOLUME 900 mL
== END ==
LOC: LAB SHORT 13:30 → LAB 13:30 → LAB FUT 05-22 14:25
PROVIDERS: Internal Medicine Nephrology
DX: N18.30 Chronic kidney disease, stage 3 unspecified (principal); D63.1 Anemia in chronic kidney disease; N25.81 Secondary hyperparathyroidism of renal origin; E55.9 Vitamin D deficiency, unspecified; E78.00 Pure hypercholesterolemia, unspecified; R76.9 Abnormal immunological finding in serum, unspecified; R94.5 Abnormal results of liver function studies; R94.6 Abnormal results of thyroid function studies; D51.8 Other vitamin B12 deficiency anemias; D52.8 Other folate deficiency anemias; D50.9 Iron deficiency anemia, unspecified
CPT/HCPCS: 81050; 82043; 82570; 84156; 84166; 86335

== ENCOUNTER 2024-07-26 11:09 | Inpatient (IN) | payer OTHER ==
[~2024-07-26] VITALS: Ht 175.3 cm; Wt 84.7 kg
[2024-07-26 12:09] LABS: Albumin, Blood 2.9 g/dL (3.4-5.0); Albumin/Globulin Ratio 0.9 (0.8-1.8); BASOPHILS ABSOLUTE AUTO 0.01 K/mm3 (0.00-0.23); BASOPHILS PERCENT AUTO 0 % (0-2); Bilirubin, Total 1.6 mg/dL (0.1-1.0); Bun/Creatinine Ratio 29.5 (12.0-20.0); Calcium, Blood 8.8 mg/dL (8.5-10.1); Creatinine, Blood 3.7 mg/dL (0.60-1.20); EOSINOPHILS ABSOLUTE AUTO 0.01 K/mm3 (0.00-0.68); EOSINOPHILS PERCENT AUTO 0 % (0-6); Globulin, Blood 3.2 g/dL (2.2-4.0); Hematocrit 37.6 % (37.0-53.0); Hemoglobin 12.5 g/dL (13.5-17.5); IMMATURE GRAN ABSOLUTE AUTO 0.02 K/mm3 (0.00-0.10); IMMATURE GRAN PERCENT AUTO 0 % (0-1); LYMPHOCYTES ABSOLUTE AUTO 1.17 K/mm3 (0.84-5.20); LYMPHOCYTES PERCENT AUTO 23 % (21-46); MONOCYTES PERCENT AUTO 8 % (4-13); Mean Corpuscular HGB 30.3 pg (26.0-34.0); Mean Corpuscular HGB Conc 33.2 g/dL (31.5-36.5); Mean Corpuscular Volume 91 fL (80-100); NEUTROPHILS ABSOLUTE AUTO 3.49 K/mm3 (1.96-9.15); NEUTROPHILS PERCENT AUTO 69 % (41-73); Potassium, Blood 3.8 mmol/L (3.5-5.5); RDW Coefficient Variation 18.5 % (11.7-14.2); RDW Standard Deviation 60.2 fL (35.1-46.3); Red Blood Cell Count 4.13 M/mm3 (4.30-5.90); Total Protein, Blood 6.1 g/dL (6.4-8.2)
[2024-07-26 12:23] LABS: Platelet Count 42 K/mm3 (150-400)
[2024-07-26] MEDS ORDERED: Acetaminophen 325 MG TABLET PO PRN (15:00)
[2024-07-26] MEDS ORDERED: Ondansetron 4 MG TAB PO PRN (15:00)
[2024-07-26] MEDS ORDERED: FLU VACC TS2024-25(6MOS UP)/PF 45 MCG/0.5 ML SYRINGE IM SCH (15:00)
[2024-07-26] MEDS ORDERED: TraZODone HCl 50 MG Tab PO PRN (15:10)
[2024-07-26] MEDS ORDERED: Carvedilol 3.125 MG Tab PO SCH (17:00)
[2024-07-26] MEDS ORDERED: METO5A PO (17:28)
[2024-07-26] MEDS ORDERED: FOLI1 PO (17:28)
[2024-07-26] MEDS ORDERED: Potassium Chloride 10 Meq Tablet SA PO SCH (17:30)
[2024-07-26] MEDS ORDERED: Midodrine 5 MG Tab PO SCH (18:00)
[2024-07-26] MEDS ORDERED: Bumetanide 0.25 MG/ML 4ML ViaL IV SCH (18:00)
[2024-07-26 19:19] VITALS: BP 92/58
--- NOTE | 2024-07-27 03:41 | NUR ---
CALLED AND NOTIFIED HOSPITALIST OF PRESSURE WOUNDS TO PT'S COCCYX WHICH WAS PRESENT ON ADMISSION. NO NEW ORDERS AT THIS TIME. BARRIER CREAM AND MEPILEX APPLIED TO COCCYX.
[2024-07-27] MEDS ORDERED: Omeprazole 20 MG CapCR PO SCH (06:00)
--- NOTE | 2024-07-27 06:03 | NUR ---
SHIFT SUMMARY: LIZ IS A&OX4. VSS, NO ACUTE EVENTS OVERNIGHT. HE IS BEDREST, ONE-PERSON ASSIST TO THE BATHROOM WITH THE FWW AND GB, USES THE URINAL AT BEDSIDE WITHOUT DIFFICULTY. HE IS TOLERATING PO INTAKE WELL, DENIES PAIN, AND THE IV TO THE LEFT WRIST IS PATENT. PT DID HAVE A BOWEL MOVEMENT THIS SHIFT. HE IS LYING IN BED WITH THE CALL LIGHT IN REACH, BED IN LOWEST POSITION AND BED ALARM ON. WILL GIVE REPORT TO DAY SHIFT RN.
[2024-07-27 06:54] LABS: BASOPHILS ABSOLUTE AUTO 0.01 K/mm3 (0.00-0.23); BASOPHILS PERCENT AUTO 0 % (0-2); EOSINOPHILS ABSOLUTE AUTO 0.04 K/mm3 (0.00-0.68); EOSINOPHILS PERCENT AUTO 1 % (0-6); Hematocrit 36.6 % (37.0-53.0); Hemoglobin 12.1 g/dL (13.5-17.5); IMMATURE GRAN ABSOLUTE AUTO 0.01 K/mm3 (0.00-0.10); IMMATURE GRAN PERCENT AUTO 0 % (0-1); LYMPHOCYTES ABSOLUTE AUTO 1.11 K/mm3 (0.84-5.20); LYMPHOCYTES PERCENT AUTO 24 % (21-46); MONOCYTES PERCENT AUTO 9 % (4-13); Mean Corpuscular HGB 30.1 pg (26.0-34.0); Mean Corpuscular HGB Conc 33.1 g/dL (31.5-36.5); Mean Corpuscular Volume 91 fL (80-100); NEUTROPHILS PERCENT AUTO 66 % (41-73); RDW Coefficient Variation 18.4 % (11.7-14.2); Red Blood Cell Count 4.02 M/mm3 (4.30-5.90); White Blood Cell Count 4.57 K/mm3 (4.00-11.30)
[2024-07-27 07:19] LABS: Albumin, Blood 2.8 g/dL (3.4-5.0); Albumin/Globulin Ratio 0.9 (0.8-1.8); Bilirubin, Total 1.3 mg/dL (0.1-1.0); Bun/Creatinine Ratio 33.6 (12.0-20.0); Calcium, Blood 8.6 mg/dL (8.5-10.1); Creatinine, Blood 3.51 mg/dL (0.60-1.20); Globulin, Blood 3.1 g/dL (2.2-4.0); Potassium, Blood 2.8 mmol/L (3.5-5.5); Total Protein, Blood 5.9 g/dL (6.4-8.2)
[2024-07-27 07:26] VITALS: BP 91/63
[2024-07-27 08:29] LABS: Platelet Count 39 K/mm3 (150-400)
[2024-07-27] MEDS ORDERED: Aspirin 81 MG Chew PO SCH (09:00)
[2024-07-27] MEDS ORDERED: Atorvastatin 40 MG Tab PO SCH (09:00)
[2024-07-27] MEDS ORDERED: Famotidine 20 MG Tab PO SCH (09:00)
[2024-07-27] MEDS ORDERED: Potassium Chloride 20 MEQ TabCR PO ONE (10:05)
[2024-07-27 12:40] VITALS: BP 86/67
[2024-07-27 15:09] VITALS: BP 93/77
--- NOTE | 2024-07-27 18:29 | NUR ---
SHIFT SUMMARY PT CONT LEVEL OF CARE. PT IS A&O X4 AND ASSIST X1 WITH FWW AND GAITBELT. PT NOTED TO STAND AND USE URINAL. PT NOTED TO ONLY VOID 50-100MLS EACH TIME AND NEEDS TO VOID FREQUENTLY. PT NOTED TO PULL OUT IV DURING STANDING TO USE URINAL. THIS NURSE ATTEMPTED TO PLACE ANOTHER IV X2 BUT WAS UNSUCCESSFUL.
[2024-07-27 20:11] VITALS: BP 86/73
[2024-07-28 03:04] VITALS: BP 93/66
--- NOTE | 2024-07-28 03:45 | NUR ---
SHIFT SUMMARY: LIZ IS A&OX4. VSS, NO ACUTE EVENTS OVERNIGHT. PT WITH FREQUENT URINATION AND URGENCY, USUALLY ONLY ABLE TO VOID SMALL AMOUNTS AT A TIME. DAY SHIFT PERFORMED BLADDER SCAN PER REPORT WITH MINIMAL RESIDUAL. ATTENDS IN PLACE, PT HAD A BM THIS SHIFT. BED ALARM ON FOR SAFETY, PT DOES NOT ALWAYS WAIT FOR STAFF PRIOR TO AMBULATING TO BATHROOM. DISCUSSED FALL PREVENTION AND EDUCATED PT ON SAFETY, PT VERBALIZED UNDERSTANDING. HE IS TOLERATING PO INTAKE WELL, BUT REPORTS POOR APPETITE. HAVEN HOSE AND NON-SLIP SOCKS IN PLACE. HE IS LYING IN BED WITH THE CALL LIGHT IN REACH, BED IN LOWEST POSITION. WILL GIVE REPORT TO DAY SHIFT RN.
[2024-07-28 05:42] LABS: Albumin, Blood 2.9 g/dL (3.4-5.0); Anion Gap 15 mmol/L (3-11); BASOPHILS ABSOLUTE AUTO 0.02 K/mm3 (0.00-0.23); BASOPHILS PERCENT AUTO 0 % (0-2); Blood Urea Nitrogen 113 mg/dL (8-24); Bun/Creatinine Ratio 32.2 (12.0-20.0); CO2, Blood 30 mmol/L (21-32); Calcium, Blood 8.6 mg/dL (8.5-10.1); Chloride, Blood 93 mmol/L (98-108); Creatinine, Blood 3.51 mg/dL (0.60-1.20); EOSINOPHILS ABSOLUTE AUTO 0.05 K/mm3 (0.00-0.68); EOSINOPHILS PERCENT AUTO 1 % (0-6); Glomerular Filtration Rate 16 (60-); Glucose, Blood 145 mg/dL (70-99); Hematocrit 38.2 % (37.0-53.0); Hemoglobin 12.7 g/dL (13.5-17.5); IMMATURE GRAN ABSOLUTE AUTO 0.02 K/mm3 (0.00-0.10); IMMATURE GRAN PERCENT AUTO 0 % (0-1); LYMPHOCYTES ABSOLUTE AUTO 1.06 K/mm3 (0.84-5.20); LYMPHOCYTES PERCENT AUTO 19 % (21-46); MONOCYTES ABSOLUTE AUTO 0.44 K/mm3 (0.16-1.47); MONOCYTES PERCENT AUTO 8 % (4-13); Magnesium, Blood 1.8 mg/dL (1.6-2.4); Mean Corpuscular HGB 30.8 pg (26.0-34.0); Mean Corpuscular HGB Conc 33.2 g/dL (31.5-36.5); Mean Corpuscular Volume 93 fL (80-100); NEUTROPHILS ABSOLUTE AUTO 4.12 K/mm3 (1.96-9.15); NEUTROPHILS PERCENT AUTO 72 % (41-73); Phosphorus, Blood 3.5 mg/dL (2.5-4.9); Potassium, Blood 3.3 mmol/L (3.5-5.5); RDW Coefficient Variation 18.6 % (11.7-14.2); RDW Standard Deviation 62.4 fL (35.1-46.3); Red Blood Cell Count 4.13 M/mm3 (4.30-5.90); Sodium, Blood 135 mmol/L (136-145); White Blood Cell Count 5.71 K/mm3 (4.00-11.30)
[2024-07-28 05:49] LABS: Platelet Count 44 K/mm3 (150-400)
[2024-07-28] MEDS ORDERED: Potassium Chloride 20 MEQ TabCR PO ONE (06:35)
[2024-07-28 07:54] VITALS: BP 98/77
[2024-07-28] MEDS ORDERED: Albumin Human 50 ML IV SCH (09:00)
[2024-07-28] MEDS ORDERED: Bumetanide 0.25 MG/ML 4ML ViaL IV SCH (09:00)
[2024-07-28 11:25] VITALS: BP 99/72
--- NOTE | 2024-07-28 11:53 | NUR ---
Pt reporting increased SOB while sleeping. Family at bedside, stating that patient appears to stop breathing while he is sleeping. Initially breathing even and unlabored, once he fell back asleep pt had shallowed breathing, then a short 5-6 sec apnic episode, then jerked awake, spo2 touched 88% then quickly recovered to 97%. Notified Dr Rivera, new order placed for CPAP and chest xray. RT notified, Ness to room to set up cpap and oximetry. Will continue to monitor.
[2024-07-28] MEDS ORDERED: KLOR-CON 1010 ME9 PO (13:06)
[2024-07-28] MEDS ORDERED: PROAIR RESPICL90 MCG INH (13:07)
[2024-07-28] MEDS ORDERED: METO5 PO (13:07)
[2024-07-28 14:14] VITALS: BP 97/73
--- NOTE | 2024-07-28 19:32 | NUR ---
Shift summary Pt alert, oriented x4; forgetful, but cooperative with care. Pt up with 1 person assist with walker for short distances. Started 24 hour urine at 0745 this am. Pt denies pain, chest pain/pressure, nausea, dizziness and numb/tingling. Pt reports sob with exertion, spo2 >90% on ra while awake, plans for CPAP while sleeping, no additional desaturations noted during shift. Tele afib 90-100, bp soft but stable. Abd soft, nontender, +bt. Other vss. No other acute changes noted. report given to oncoming rn.
[2024-07-28 19:43] VITALS: BP 89/67
[2024-07-28] MEDS ORDERED: Miconazole Nitrate 28 GM CREAM..G. TOP SCH (23:15)
--- NOTE | 2024-07-29 00:51 | NUR ---
0030- PT PLACED ON CAMERA. PT TAKING OFF CLOTHES TELE AND TRYING TO GET OUT OF BED.
--- NOTE | 2024-07-29 02:42 | NUR ---
RESPONDED TO PT'S ROOM AFTER HEARING THE OBSERVER FROM THE REMOTE MONITOR SPEAKING TO PT. AFTER SPEAKING WITH PT AND ASKING QUESTIONS, PT STATED HE NEEDED TO URINATE. PT HAS BEEN STANDING AND USING THE URINAL. PLACED GAIT BELT. PT WAS ABLE TO STAND, BUT NOT ABLE TO MAINTAIN HIS BALANCE AND SAT BACK ON THE BED ABRUPTLY. PT ASSISTED BY BIO MEDICAL TECHNICIAN TO [facility] WHERE HE WAS ABLE TO URINATE AND PRODUCED A BM. CALLED LAB REGARDING THE 24-HOUR URINE COLLECTION AND, UNFORTUNATELY, WAS INFORMED THAT URINE COULD NOT BE USED AND COLLECTION WILL HAVE TO RESTART. UPDATED BIO MEDICAL TECHNICIAN AND BEDSIDE RN.
[2024-07-29 04:26] VITALS: BP 136/108
[2024-07-29 05:05] LABS: BASOPHILS ABSOLUTE AUTO 0.01 K/mm3 (0.00-0.23); BASOPHILS PERCENT AUTO 0 % (0-2); EOSINOPHILS ABSOLUTE AUTO 0.04 K/mm3 (0.00-0.68); EOSINOPHILS PERCENT AUTO 1 % (0-6); Hematocrit 34.6 % (37.0-53.0); Hemoglobin 11.5 g/dL (13.5-17.5); IMMATURE GRAN ABSOLUTE AUTO 0.03 K/mm3 (0.00-0.10); IMMATURE GRAN PERCENT AUTO 1 % (0-1); LYMPHOCYTES PERCENT AUTO 22 % (21-46); MONOCYTES ABSOLUTE AUTO 0.39 K/mm3 (0.16-1.47); MONOCYTES PERCENT AUTO 8 % (4-13); Mean Corpuscular HGB 30.3 pg (26.0-34.0); Mean Corpuscular HGB Conc 33.2 g/dL (31.5-36.5); Mean Corpuscular Volume 91 fL (80-100); NEUTROPHILS ABSOLUTE AUTO 3.16 K/mm3 (1.96-9.15); NEUTROPHILS PERCENT AUTO 68 % (41-73); RDW Coefficient Variation 18.5 % (11.7-14.2); RDW Standard Deviation 61.4 fL (35.1-46.3); Red Blood Cell Count 3.79 M/mm3 (4.30-5.90); White Blood Cell Count 4.63 K/mm3 (4.00-11.30)
[2024-07-29 05:14] LABS: Platelet Count 42 K/mm3 (150-400)
--- NOTE | 2024-07-29 05:22 | NUR ---
NOC SUMMARY- PT 24 HR URINE HAD TO BE RESTARTED. PT HAS BEEN HAVING SOME INCOTIENT EPISODES. PT THIS HAD INCREASED CONFUSION AND MORE IMPULSIVE. PT TRIED TO GET OUT OF BED AND REMOVED CLOTHES AND TELE AND SPO2. PT REFUSED TO TRY CPAP. PT WAS PLACED ON NC @ 1 LPM WITH SPO2 >90%. CAMERA WAS PLACED IN ROOM FOR SAFETY. PT IS LESS CONFUSED THIS AM. PT DID HAVE A SHORT RUN OF V-TACH REPORTED FROM SUPERVISOR DIALS. PT DENIED CX PAIN OR SOB. PT WATCHING TV IN NO DISTRESS. CALL LIGHT IN REACH, BED ALARM ON AND CAMERA IN ROOM.
[2024-07-29 05:23] LABS: Magnesium, Blood 1.5 mg/dL (1.6-2.4)
[2024-07-29 05:24] LABS: Albumin, Blood 3.1 g/dL (3.4-5.0); Anion Gap 16 mmol/L (3-11); Blood Urea Nitrogen 108 mg/dL (8-24); Bun/Creatinine Ratio 32.9 (12.0-20.0); CO2, Blood 27 mmol/L (21-32); Calcium, Blood 8.8 mg/dL (8.5-10.1); Chloride, Blood 95 mmol/L (98-108); Creatinine, Blood 3.28 mg/dL (0.60-1.20); Glomerular Filtration Rate 18 (60-); Glucose, Blood 128 mg/dL (70-99); Phosphorus, Blood 3.5 mg/dL (2.5-4.9); Potassium, Blood 2.6 mmol/L (3.5-5.5); Sodium, Blood 135 mmol/L (136-145)
[2024-07-29] MEDS ORDERED: Mag Sulfate 1 GM/D5% 100ML 100 ML IV STA (06:00)
[2024-07-29] MEDS ORDERED: Potassium Chl 20MEQ/Water100ML 100 ML IV SCH (06:30)
[2024-07-29] MEDS ORDERED: NS 500 ML IV SCH (06:45)
[2024-07-29 07:25] VITALS: BP 88/67
[2024-07-29] MEDS ORDERED: Spironolactone 25 MG Tab PO SCH ×2 (09:00→12:01)
[2024-07-29] MEDS ORDERED: Potassium Chloride 10 Meq Tablet SA PO SCH (12:00)
[2024-07-29] MEDS ORDERED: Potassium Chl 20MEQ/Water100ML 100 ML IV ONE (12:00)
[2024-07-29 16:49] VITALS: BP 91/69
--- NOTE | 2024-07-29 19:12 | NUR ---
NO ACUTE CHANGES, SARAVIA PLACED FOR NEW 24 HOUR URINE, PATIENT IS VERY UNCOMFORTABLE WITH THE SARAVIA CATHETER IN PLACE, FAMILY AT BEDSIDE, CALL LIGHT WITH IN REACH, RELAYED TO PM RN
[2024-07-29 19:42] VITALS: BP 106/88
[2024-07-29 19:54] LABS: Source, Urine Foley catheter
[2024-07-29 19:59] LABS: Appearance, Urine Clear (Clear); Bilirubin, Urine Neg (Neg); Blood, Urine Neg (Neg); Color, Urine Yellow (P-Yellow); Glucose Qualitative, Urine Neg (Neg); Ketones, Urine Neg (Neg); Leukocyte Esterase, Urine Neg (Neg); Nitrite, Urine Neg (Neg); Protein, Urine 1+ (Neg); Urobilinogen, Urine NORM (Normal)
[2024-07-29] MEDS ORDERED: Temazepam 15 MG Cap PO ONE (23:00)
[2024-07-30 05:01] LABS: BASOPHILS ABSOLUTE AUTO 0.01 K/mm3 (0.00-0.23); BASOPHILS PERCENT AUTO 0 % (0-2); EOSINOPHILS PERCENT AUTO 0 % (0-6); Hematocrit 41.4 % (37.0-53.0); Hemoglobin 13.7 g/dL (13.5-17.5); IMMATURE GRAN ABSOLUTE AUTO 0.04 K/mm3 (0.00-0.10); IMMATURE GRAN PERCENT AUTO 1 % (0-1); LYMPHOCYTES ABSOLUTE AUTO 0.96 K/mm3 (0.84-5.20); LYMPHOCYTES PERCENT AUTO 13 % (21-46); MONOCYTES ABSOLUTE AUTO 0.58 K/mm3 (0.16-1.47); MONOCYTES PERCENT AUTO 8 % (4-13); Mean Corpuscular HGB 30.6 pg (26.0-34.0); Mean Corpuscular HGB Conc 33.1 g/dL (31.5-36.5); Mean Corpuscular Volume 93 fL (80-100); NEUTROPHILS ABSOLUTE AUTO 5.94 K/mm3 (1.96-9.15); NEUTROPHILS PERCENT AUTO 79 % (41-73); RDW Coefficient Variation 19.1 % (11.7-14.2); RDW Standard Deviation 62.4 fL (35.1-46.3); Red Blood Cell Count 4.47 M/mm3 (4.30-5.90); White Blood Cell Count 7.53 K/mm3 (4.00-11.30)
--- NOTE | 2024-07-30 05:10 | NUR ---
NOC SUMMARY- PT SARAVIA REPLACED WITH A COUDE HALEIGH. URINE FLOW IMPROVED. PT HAS BEEN COMPLAINING OF PENIS DISCOMFORT. PT HAS BEEN CONFUSED AND TRYING TO GET OUT OF BED. PROVIDER ORDERD OT DOSE OF RISTORIL. PT SLEPT FOR FEW HOURS. THIS AM PT IS TRYING TO GET OUT OF BED AT TIMES. PT REMAINS ON CAMERA. PT SARAVIA DRAINING TO GRAVITY. NO TELE EVENTS REPORTED. CALL LIGHT IN REACH AND BED ALARM ON.
[2024-07-30 05:11] LABS: Platelet Count 45 K/mm3 (150-400)
[2024-07-30 05:20] LABS: Albumin, Blood 3.5 g/dL (3.4-5.0); Anion Gap 15 mmol/L (3-11); Blood Urea Nitrogen 106 mg/dL (8-24); Bun/Creatinine Ratio 29.9 (12.0-20.0); CO2, Blood 29 mmol/L (21-32); Calcium, Blood 9.2 mg/dL (8.5-10.1); Chloride, Blood 95 mmol/L (98-108); Creatinine, Blood 3.54 mg/dL (0.60-1.20); Glomerular Filtration Rate 16 (60-); Glucose, Blood 137 mg/dL (70-99); Magnesium, Blood 2.1 mg/dL (1.6-2.4); Phosphorus, Blood 3.6 mg/dL (2.5-4.9); Potassium, Blood 3.7 mmol/L (3.5-5.5); Sodium, Blood 135 mmol/L (136-145)
[2024-07-30 07:34] VITALS: BP 88/74
[2024-07-30] MEDS ORDERED: Spironolactone 25 MG Tab PO SCH (09:00)
[2024-07-30] MEDS ORDERED: Potassium Chloride 10 Meq Tablet SA PO SCH (09:00)
[2024-07-30] MEDS ORDERED: Bumetanide 0.25 MG/ML 4ML ViaL IV SCH (09:00)
[2024-07-30 15:30] VITALS: BP 85/70
[2024-07-30] MEDS ORDERED: LORazepam 2 MG/ML 1ML Injection IV ONE (20:00)
[2024-07-30] MEDS ORDERED: Haloperidol Lactate Inj. 5 MG/ML Injection IV ONE (20:00)
[2024-07-30] MEDS ORDERED: LORazepam 2 MG/ML 1ML Injection IV PRN (20:05)
[2024-07-30 21:00] LABS: Protein, Urine Quantitative 145.7 mg/dL (0.0-11.9)
[2024-07-30 22:11] VITALS: BP 143/115
[2024-07-31] VITALS (15 sets, daily range): BP systolic 63–190; BP diastolic 51–97
[2024-07-31] MEDS ORDERED: HydrALAZINE HCl 20 MG / ML 1ML Vial IV PRN (04:25)
--- NOTE | 2024-07-31 05:27 | NUR ---
NEW T-ORDER FOR PRN IV HYDRAZALINE 10MG Q6HRS IF SYSTOLIC >160. RECEIVED FROM ON-CALL HOSPITALIST BY THIS PRECISION LENS GRINDER. ENTERED TO [facility], SEE EMAR. NO ADDITIONAL NEW ORDERS AT THIS TIME.
--- NOTE | 2024-07-31 05:29 | NUR ---
SHIFT SUMMARY PT IS A&O X1 TO SELF ONLY. RADHA RESTRAINT INITIATED AT 2140. PAD MACHINE FEEDER NOTIFIED. ATIVAN Q4HRS IV PRN ADMINISTERED T/O THIS SHIFT. HYDRAZALINE 10MG IV PRN NEW ORDER AND ADMINISTERED THIS MORNING BP 190/90. PT HAS BEEN PULLING OUT HIS TELE CORDS, PULLED OUT HIS IV, AND NASAL CANNULA. CONTINUOUS PULSE OX SAT'S>99% ON RA. PT CONTINUES TO TRY TO GET OUT OF BED, THEREFORE RADHA WAS INITIATED AND PT CONTINUES TO STAY ON RADHA FOR SAFETY. CAMERA DISCONTINUED @0530. BED ALARM FOR SAFETY.BED AT THE LOWEST POSITION, CALL LIGHT W/I REACH. OFFERING FLUIDS AND URINAL BY THE BEDSIDE.
[2024-07-31 06:18] LABS: BASOPHILS ABSOLUTE AUTO 0.01 K/mm3 (0.00-0.23); BASOPHILS PERCENT AUTO 0 % (0-2); EOSINOPHILS PERCENT AUTO 0 % (0-6); Hematocrit 37.5 % (37.0-53.0); Hemoglobin 12.5 g/dL (13.5-17.5); IMMATURE GRAN ABSOLUTE AUTO 0.06 K/mm3 (0.00-0.10); IMMATURE GRAN PERCENT AUTO 1 % (0-1); LYMPHOCYTES ABSOLUTE AUTO 1.05 K/mm3 (0.84-5.20); LYMPHOCYTES PERCENT AUTO 14 % (21-46); MONOCYTES ABSOLUTE AUTO 0.44 K/mm3 (0.16-1.47); MONOCYTES PERCENT AUTO 6 % (4-13); Mean Corpuscular HGB 30.6 pg (26.0-34.0); Mean Corpuscular HGB Conc 33.3 g/dL (31.5-36.5); Mean Corpuscular Volume 92 fL (80-100); NEUTROPHILS ABSOLUTE AUTO 5.77 K/mm3 (1.96-9.15); NEUTROPHILS PERCENT AUTO 79 % (41-73); NRBC ABSOLUTE 0.02 K/mm3 (0.00-0.02); NRBC Auto 0.3 /100 WBC (0.0-0.2); RDW Standard Deviation 62.4 fL (35.1-46.3); Red Blood Cell Count 4.08 M/mm3 (4.30-5.90); White Blood Cell Count 7.33 K/mm3 (4.00-11.30)
[2024-07-31 06:24] LABS: Platelet Count 39 K/mm3 (150-400)
[2024-07-31 06:37] LABS: Anion Gap 19 mmol/L (3-11); Blood Urea Nitrogen 114 mg/dL (8-24); Bun/Creatinine Ratio 27.9 (12.0-20.0); CO2, Blood 26 mmol/L (21-32); Chloride, Blood 97 mmol/L (98-108); Creatinine, Blood 4.09 mg/dL (0.60-1.20); Glomerular Filtration Rate 14 (60-); Glucose, Blood 125 mg/dL (70-99); Phosphorus, Blood 4.5 mg/dL (2.5-4.9); Potassium, Blood 4.7 mmol/L (3.5-5.5); Sodium, Blood 137 mmol/L (136-145)
[2024-07-31] MEDS ORDERED: Spironolactone 12.5 MG TAB PO SCH (09:00)
--- NOTE | 2024-07-31 15:25 | NUR ---
MET WITH PT'S AND SON THIS AM PT REMAINED IN BED WITH EYES CLOSED, RESP EVEN/UNLABORED. WE DISCUSSED PLACEMENT OF TEMPORARY DIALYSIS CATHETER TO ALLOW PT TO BEGIN DIALYSIS. THE PATIENT ALSO HAS ACUTE ON CHRONIC CHF. WE DISCUSSED PT'S NEW ONSET OF CONFUSION, WELL GENERAL DISCUSSION RELATED TO QUALITY OF LIFE ON DIALYSIS. FAMILY INSIST THE PATIENT WANTS TO TRY ANY PROCEDURE THAT WILL EXTEND HIS LIFE. PT'S SON STATES BOTH HIS DAUGHTER AND ARE RN'S AND HAVE BROUGHT UP THE SAME POINTS THIS RN. HOSPITALIST AWARE THAT THE PATIENT WANTS TO PURSUE THE PROCEDURE.
--- NOTE | 2024-07-31 16:40 | NUR ---
SHIFT SUMMARY PT SLEEPING, RESTING QUIETLY AT START OF SHIFT. PER REPORT, PT AWAKE AND AGITATED ALL NIGHT. PT PULLING OUT IV SITE, TELE MX AND ATTEMPTING TO GET OOB CONSTANTLY. PT REMAINS VERY CONFUSED AND DOES NOT FOLLOW ANY DIRECTIONS. DR LIVE IN EARLY TO SEE PT AND LATER CALLED WITH ORDER FOR CONSULT. CONSULT CALLED TO DR Viveros'S OFFICE FOR [facility] CATH PLACEMENT. DR ALEJANDRE UPDATED ON PT STATUS AND LATER TO TO TALK WITH FAMILY. DR Viveros ALSO TO TO TALK WITH AND SON AND HAVE CONSENT SIGNED. PLATELETS ORDERED AND GIVEN PRIOR TO PROCEDURE. IR TEAM HERE TO TAKE PT DOWN @ 1630. DR LIVE NOTIFIED. MOBILE SECURITY ARCHITECT TO BE NOTIFIED WHEN PT RETURNS SO THAT DIALYSIS CAN BE STARTED. PT TO BE TRANSFERED TO 352 WHEN HE RETURNS FROM [facility] CATH PLACEMENT. PT HAS BEEN VERY AGITATED TODAY, ATTEMPTING TO GET OOB AND TRYING TO PULL OUT IV SITE CONSTANTLY WHEN PLATELETS INFUSING. PT DOES NOT FOLLOW ANY DIRECTIONS AT ALL. INCONTINENT OF BLADDER ALL DAY. MULTIPLE BED AND LINEN CHANGES DONE. BED BATH GIVEN THIS AM. REPORT TO BE GIVEN TO JUANITA ELIZABETH.
[2024-07-31] MEDS ORDERED: NS 250 ML IV ONE (16:48)
[2024-07-31] MEDS ORDERED: Heparin Sodium 1000 Units/ML 10ML MDV ONE (16:48)
[2024-07-31] MEDS ORDERED: Heparin Sodium 10,000 Units/ML 1ML MDV ONE (17:09)
--- NOTE | 2024-07-31 18:17 | NUR ---
TRANSFER/SHIFT SUMMARY 5- PT ARRIVED FROM [facility] CATH PROCEDURE VIA BED. SLEEPING BUT AROUSABLE, A&OX2/3, FAMILY AT BEDSIDE, SKIN ASSESSMENT PERFORMED BY THIS RN AND TERRIE ELIZABETH. THIS RN ORDERED RENAL DINNER TRAY PER MD TELEPHONE ORDER. STILL IN RADHA VEST UNTIL 2139. BED IN LOWEST POSITION, CALL LIGHT WITHIN REACH.
[2024-08-01] VITALS (16 sets, daily range): BP systolic 78–181; BP diastolic 43–98
[2024-08-01] MEDS ORDERED: Albumin (Human) 12.5gm/250ml 250 ML IV ONE (01:25)
[2024-08-01] MEDS ORDERED: Bumetanide 0.25 MG/ML 10ML Vial IV ONE (01:25)
--- NOTE | 2024-08-01 03:59 | NUR ---
Patient demonstrating congestive cough with secretions, nursing oral suction via yankaurer ineffective. RN notified Dr. Leone, who provided telephone orders for NT suction by RT, orders entered by RN. RN notified RT of new orders.
--- NOTE | 2024-08-01 05:31 | NUR ---
Patient alert and oriented to self only this shift. Patient frequently restless, pulling at lines, dressings, clothing, Wilfrido vest, and new dialysis catheter to right upper chest. PRN ativan given twice for agitation, tolerated well. Patient given dose of 12.5 g Albumin, 4 mg Bumex, and NT suctioned by RT overnight, 2L oxygen applied via nasal cannula per patient's complaint of shortness of breath. Patient incontinent of bladder overngight, voiding into brief, requiring two person total care for bed mobility. Patient's blood pressure trending hypotensive overnight.
[2024-08-01 05:38] LABS: BASOPHILS ABSOLUTE AUTO 0.01 K/mm3 (0.00-0.23); BASOPHILS PERCENT AUTO 0 % (0-2); EOSINOPHILS PERCENT AUTO 0 % (0-6); Hematocrit 39.2 % (37.0-53.0); Hemoglobin 12.5 g/dL (13.5-17.5); IMMATURE GRAN ABSOLUTE AUTO 0.04 K/mm3 (0.00-0.10); IMMATURE GRAN PERCENT AUTO 1 % (0-1); LYMPHOCYTES ABSOLUTE AUTO 0.89 K/mm3 (0.84-5.20); LYMPHOCYTES PERCENT AUTO 13 % (21-46); MONOCYTES ABSOLUTE AUTO 0.47 K/mm3 (0.16-1.47); MONOCYTES PERCENT AUTO 7 % (4-13); Mean Corpuscular HGB 31.1 pg (26.0-34.0); Mean Corpuscular HGB Conc 31.9 g/dL (31.5-36.5); NEUTROPHILS ABSOLUTE AUTO 5.38 K/mm3 (1.96-9.15); NEUTROPHILS PERCENT AUTO 79 % (41-73); NRBC ABSOLUTE 0.05 K/mm3 (0.00-0.02); NRBC Auto 0.7 /100 WBC (0.0-0.2); Platelet Count 68 K/mm3 (150-400); RDW Coefficient Variation 19.8 % (11.7-14.2); RDW Standard Deviation 67.3 fL (35.1-46.3); Red Blood Cell Count 4.02 M/mm3 (4.30-5.90); White Blood Cell Count 6.79 K/mm3 (4.00-11.30)
[2024-08-01 06:04] LABS: Albumin, Blood 3.3 g/dL (3.4-5.0); Anion Gap 21 mmol/L (3-11); Blood Urea Nitrogen 124 mg/dL (8-24); Bun/Creatinine Ratio 29.7 (12.0-20.0); CO2, Blood 21 mmol/L (21-32); Calcium, Blood 9.2 mg/dL (8.5-10.1); Chloride, Blood 98 mmol/L (98-108); Creatinine, Blood 4.18 mg/dL (0.60-1.20); Glomerular Filtration Rate 13 (60-); Glucose, Blood 100 mg/dL (70-99); Magnesium, Blood 1.9 mg/dL (1.6-2.4); Potassium, Blood 4.1 mmol/L (3.5-5.5); Sodium, Blood 136 mmol/L (136-145)
[2024-08-01 06:23] LABS: Mean Corpuscular Volume 98 fL (80-100)
[2024-08-01] MEDS ORDERED: Anticoagulant Sod Citrate Soln 3 ML SYR INJ PRN (07:40)
[2024-08-01] MEDS ORDERED: Bumetanide 1 MG Tab PO SCH (09:00)
[2024-08-01] MEDS ORDERED: Albumin (Human) 25gm/100ml 100 ML IV SCH (09:25)
--- NOTE | 2024-08-01 12:38 | NUR ---
1230 PT WAS ANXIOUS, RN GAVE ATIVAN ORDER WAS 1 MG IV, NURSE GAVE 1.5MG IV. PRIOR TO ADMINISTRATION, PT WAS HAVING APNEIC EPISODES OF ABOUT 10 SECONDS. WILL CONTINUE TO MONITOR.
--- NOTE | 2024-08-01 12:46 | NUR ---
PATIENT RETURNED FROM DIALYSIS; NO CHANGES. PATIENT MOANING AND HOLLERING OUT. ASKED PATIENT WHAT IS WRONG. PATIENT RESPONSES WITH " I DON'T KNOW." EACH TIME. ASKED PATIENT MULTIPLE TIMES AND WAYS IF HE WAS IN PAIN. PATIENT SAY YES WHEN I AKSED HIM IF HE WAS UNCOMFORTABLE. DIFFICULT TO GET PATIENT TO RESPONSE TO QUESTIONS. OBSERVED THAT PATIENT IS HAVING 10-12 SECOND PAUSES IN HIS BREATHING AND AT ONE POINT A SPO2% OF 88%. PATIENT DIFFICULT TO AROUSE DURING APNEIC EPISODES. SPO2% IMPROVED TO 96% ONCE STARTED BREATHING. DR. ALEJANDRE NOTIFIED; SHE ADVISED TO SEND PATIENT TO ICU. CALL MADE TO PATIENT'S MANNY AND NOTIFIED HER AND SHE STATED THAT SHE WILL BE HERE IN 20 MINUTES.
[2024-08-01] MEDS ORDERED: dexmedeTOMIDine 100 ML IV SCH (13:10)
[2024-08-01] MEDS ORDERED: Scopolamine Hydrobromide Patch TOP PRN (14:05)
[2024-08-01] MEDS ORDERED: Atropine Sulfate 1% Opth Soln 2ML BTL SL PRN (14:05)
[2024-08-01] MEDS ORDERED: Acetaminophen 650 MG Supp PR PRN (14:05)
[2024-08-01] MEDS ORDERED: Morphine Sulfate 20 MG/1ML 1 ML Oral Syringe SL PRN (14:05)
[2024-08-01] MEDS ORDERED: LORazepam 2 MG/ML 1ML Injection IV PRN (14:05)
[2024-08-01] MEDS ORDERED: LORazepam 1 MG Tab PO PRN (14:05)
--- NOTE | 2024-08-01 14:18 | NUR ---
Met with family at pt's bedside this afternoon for goals of care conference along with ICU charge nurse, bedside RN. Pt had his first dialysis this morning. Report stated he yelled out during most of dialysis. He is now lying in back in bed, continuing to yell out without saying words, giving non-verbal symptoms of pain. His blood pressure has been lower than his norm and comfort care orders initiated after in depth discussion with family members, including a call from step-son to pt's bio son and daughter, both in agreement for comfort care. Pt's has moderate dementia, but ICU charge spent significant amount of time explaining comfort means no further dialysis and keeping pt comfortable. Both sons feel comfortable that their mom has significant understanding regarding this decision for comfort and she is also agreeable with the decision. Hospitalist in agreement with this plan, gave comfort care orders. Will continue to provide support to the patient and family.
--- NOTE | 2024-08-01 14:22 | NUR ---
Pt yelling out with pain, was transitioned to comfort care, repositioned him, applied heating pad where he appears to have pain, is not able to verbalize, gave 5mg of roxinol for pain. family at bedside, call light in reach.
[2024-08-01] MEDS ORDERED: Haloperidol Lactate 2 MG/ML Conc 1ML Dose PO PRN (14:50)
[2024-08-01] MEDS ORDERED: Ondansetron HCl 2 MG / ML 2ML Vial IV PRN (14:50)
[2024-08-01] MEDS ORDERED: Haloperidol Lactate Inj. 5 MG/ML Injection IV PRN (14:50)
--- NOTE | 2024-08-01 17:24 | NUR ---
SHIFT SUMMARY UNABLE TO ASSESS A&O STATUS, LUNGS SOUNDS CRACKLE, ALOT OF FLUID BUILD UP IN CHEST. HAD DIALYSIS FOR APPROXIMATELY 3 HOURS, 2 LITERS FLUID OFF. TERRIE RN TALKED TO FAMILY ABOUT PALLIATIVE CARE, WHICH WAS INITIATED. PT IS DOING WELL WITH 1MG ATIVAN IV WITH 10MG ROXANOL SL. ALSO UTILIZED ATROPINE DROPS TO HELP SECRETIONS, FAMILY HAS NOT CALLED FOR PAIN CONTROL OR SECRETION MANAGEMENT SINCE. RESTRAINTS WERE DC'D. BED IN LOWEST POSITION, CALL LIGHT WITHIN REACH.
--- NOTE | 2024-08-02 02:49 | NUR ---
0210: RN called to room by family members with belief patient has passed. This RN auscultated breath and heart tones, palpated for radial pulse, no sounds heard nor pulse felt for >1 minute, second RN Chepe Barahona also auscultated and palpated to confirm assessment. This RN called and notified Dr. Leone at 0215.
[2024-08-03 10:40] LABS: HEPATITIS B SURFACE ANTIBODY <3.10 IU/L
[2024-08-03 12:32] LABS: HEPATITIS A ANTIBODY, IGM Negative (Negative); HEPATITIS B CORE ANTIBODY, IGM Negative (Negative); HEPATITIS B SURFACE ANTIGEN Negative (Negative); HEPATITIS C AB CIA INTERP Negative (Negative); HEPATITIS C ANTIBODY CIA INDEX 0.08 IV
== END 2024-08-02 02:10 | DRG 673 ==
LOC: ER 11:09 → MEDS 14:57
PROVIDERS: Family Medicine; Internal Medicine Nephrology; Student in an Organized Health Care Education/Training Program; ADMIT Family Medicine
PROC: 3E03329 Introduction of Other Anti-infective into Peripheral Vein, Percutaneous Approach (ICD-10-PCS; 2024-07-26)
PROC: 5A09457 Assistance with Respiratory Ventilation, 24-96 Consecutive Hours, Continuous Positive Airway Pressure (ICD-10-PCS; 2024-07-28)
PROC: 30233J1 Transfusion of Nonautologous Serum Albumin into Peripheral Vein, Percutaneous Approach (ICD-10-PCS; 2024-07-28)
PROC: 0T9B70Z Drainage of Bladder with Drainage Device, Via Natural or Artificial Opening (ICD-10-PCS; 2024-07-29)
PROC: 30233R1 Transfusion of Nonautologous Platelets into Peripheral Vein, Percutaneous Approach (ICD-10-PCS; principal; 2024-07-31)
PROC: 02HV33Z Insertion of Infusion Device into Superior Vena Cava, Percutaneous Approach (ICD-10-PCS; 2024-07-31)
PROC: B5181ZA Fluoroscopy of Superior Vena Cava using Low Osmolar Contrast, Guidance (ICD-10-PCS; 2024-07-31)
PROC: B548ZZA Ultrasonography of Superior Vena Cava, Guidance (ICD-10-PCS; 2024-07-31)
PROC: 0JH60XZ Insertion of Tunneled Vascular Access Device into Chest Subcutaneous Tissue and Fascia, Open Approach (ICD-10-PCS; 2024-07-31)
PROC: 5A1D70Z Performance of Urinary Filtration, Intermittent, Less than 6 Hours Per Day (ICD-10-PCS; 2024-08-01)
DX: N17.9 Acute kidney failure, unspecified (principal); G92.8 Other toxic encephalopathy; I50.43 Acute on chronic combined systolic (congestive) and diastolic (congestive) heart failure; I13.0 Hypertensive heart and chronic kidney disease with heart failure and stage 1 through stage 4 chronic kidney disease, or unspecified chronic kidney disease; E87.1 Hypo-osmolality and hyponatremia; N18.4 Chronic kidney disease, stage 4 (severe); N25.81 Secondary hyperparathyroidism of renal origin; Z51.5 Encounter for palliative care; Z66 Do not resuscitate; I25.5 Ischemic cardiomyopathy; E87.6 Hypokalemia; D63.1 Anemia in chronic kidney disease; D69.6 Thrombocytopenia, unspecified; L89.152 Pressure ulcer of sacral region, stage 2; E78.5 Hyperlipidemia, unspecified; N40.0 Benign prostatic hyperplasia without lower urinary tract symptoms; M54.9 Dorsalgia, unspecified; I95.89 Other hypotension; I48.91 Unspecified atrial fibrillation; E88.09 Other disorders of plasma-protein metabolism, not elsewhere classified; Z99.2 Dependence on renal dialysis; Z88.8 Allergy status to other drugs, medicaments and biological substances; Z95.5 Presence of coronary angioplasty implant and graft; Z98.890 Other specified postprocedural states; Z79.899 Other long term (current) drug therapy; I25.2 Old myocardial infarction; Z87.891 Personal history of nicotine dependence; Z79.82 Long term (current) use of aspirin; I25.10 Atherosclerotic heart disease of native coronary artery without angina pectoris; Z82.49 Family history of ischemic heart disease and other diseases of the circulatory system; R45.1 Restlessness and agitation; I49.3 Ventricular premature depolarization; I45.10 Unspecified right bundle-branch block; Z78.1 Physical restraint status; Z95.810 Presence of automatic (implantable) cardiac defibrillator
CPT/HCPCS: 36415; 36430; 36558; 71045; 71046; 76705; 76770; 76937; 80053; 80069; 80074; 83735; 83880; 84132; 84156; 84484; 85025; 86900; 86901; 93005; 93010; 94660; 94760; 94762; 99285-25; A9270; C1750; C1769; C1894; J0360; J1630; J1644; J2060; J3475; J3480; J7040; J7050; P9035; P9045; P9047